=== PATIENT | male | born 1970 | race Caucasian/White ===

== ENCOUNTER 2018-07-03 18:10 | Emergency (ER) | payer SELFPAY ==
[~2018-07-03] VITALS: Ht 182.8 cm; Wt 99.8 kg
--- NOTE | ~2018-07-03 | EKG ---
[place], [place] ELECTROCARDIOGRAM REPORT NAME: ZENAIDA ESCOBAR UNIT #: [id number] ROOM: DOCTOR: EPIPHANY DRAFT REPORT BIRTHDATE: [birth year] [facility] Test Date: 2018-07-03 Test Time: 19:01:22 Pat Name: ZENAIDA ESCOBAR Department: Room: Gender: Sports Teacher: Adela Tomas : 1970 Requested By: ROBERT ROBERTSON PA-C Order Number: [id number] Reading MD: Yehuda Cunningham MD Measurements Intervals [place] Rate: 85 P: 56 AR: 170 QRS: 59 QRSD: 87 T: 14 QT: 377 QTc: 449 Interpretive Statements Sinus rhythm Electronically Signed On 07-03-2018 19:06:14 PDT by Yehuda Cunningham MD CM:EKGRPT:ELECTROCARDIOGRAM REPORT 00 05 ROBERT ROBERTSON PA-C EPIPHANY DRAFT REPORT ROBERT ROBERTSON PA-C
[2018-07-03 19:06] LABS: BASO % 0.5 % (0.0-1.0); EOS # 0.1 10*3/uL (0.0-0.4); EOS % 1.3 % (1.0-4.0); HEMATOCRIT 42.6 % (42.0-52.0); HEMOGLOBIN 14.8 g/dl (14.0-18.0); LYMPH # 2.6 10*3/uL (1.3-4.4); LYMPH % 33.1 % (27.0-41.0); MEAN CELL VOLUME 79.6 fl (80.0-94.0); MEAN CORPUSCULAR HGB 27.7 pg (27.0-31.0); MEAN CORPUSCULAR HGB CONC 34.7 g/dl (33.0-37.0); MONO # 0.9 10*3/uL (0.1-1.0); MONO % 11.7 % (3.0-9.0); NEUT # 4.1 10*3/uL (2.3-7.9); NEUT % 52.9 % (47.0-73.0); PLATELET COUNT AUTOMATED 300 10*3/uL (130-400); RED BLOOD COUNT 5.35 10*6/uL (4.50-5.90); RED CELL DISTRI WIDTH 12.4 % (0-14.5); WHITE BLOOD COUNT 7.8 10*3/uL (4.8-10.8)
[2018-07-03 19:20] LABS: URINE AMPHETAMINES > 1000 (1000ng/ml); URINE BARBITURATES < 200 (200ng/ml); URINE BENZODIAZEPINES < 200 (200ng/ml); URINE CANNABINOIDS (THC) < 50 (50ng/ml); URINE COCAINE < 300 (300ng/ml); URINE METHADONE < 300 (300ng/ml); URINE OPIATES < 300 (300ng/ml)
[2018-07-03 19:21] LABS: URINE PHENCYCLIDINE < 25 (25ng/ml)
[2018-07-03 19:23] LABS: ALBUMIN 3.7 gm/dl (3.1-4.5); ALKALINE PHOSPHATASE 63 U/L (45-117); BUN 11 mg/dl (7-24); CHLORIDE 109 mmol/L (98-107); CREATININE 1.04 mg/dL (0.70-1.30); POTASSIUM 3.6 mmol/L (3.5-5.1); SGOT/AST 27 IU/L (3-35); SGPT/ALT 38 U/L (12-78); SODIUM 141 mmol/L (136-145); TOTAL PROTEIN 7.2 gm/dL (6.4-8.2)
[2018-07-03 19:25] LABS: TROPONIN I < 0.015 ng/ml (<0.045)
== END 2018-07-03 20:19 | disposition home or self-care (01) ==
LOC: ED 18:10
PROVIDERS: Physician Assistant
DX: F19.10 Other psychoactive substance abuse, uncomplicated (principal); Z65.8 Other specified problems related to psychosocial circumstances